=== PATIENT | female | born 1995 | race Caucasian/White ===

== ENCOUNTER 2020-05-10 18:51 | Inpatient (IN) ==
[~2020-05-10 18:51] MED LIST: Penicillin G Potassium 2,500,000 UNIT/105 ML MLS IVPB SCH
[2020-05-10] MEDS ORDERED: Oxytocin 20 units/ LR 1000 mL 20 UNIT/1,000 ML BAG IVC SCH (19:15)
[2020-05-10] MEDS ORDERED: Penicillin G Potassium 5,000,000 UNIT in 0.9 % Sodium Chloride Mini Bag 100 ML IVPB ONE (19:15)
[2020-05-10] MEDS ORDERED: Famotidine 20 MG/2 ML VIAL IVP PRN (19:15)
[2020-05-10] MEDS ORDERED: CeFAZolin 2,000 MG/50 ML BAG IVPB ONE (19:15)
[2020-05-10] MEDS ORDERED: *HR* FentaNYL (PF) 100 MCG/2 ML VIAL IVP PRN (19:15)
[2020-05-10] MEDS ORDERED: Ondansetron 4 MG/2 ML VIAL IVP PRN (19:15)
[2020-05-10] MEDS ORDERED: *HR* Nalbuphine 10 MG/ML AMPUL IV PRN (19:15)
[2020-05-10] MEDS ORDERED: Azithromycin 500 MG in 0.9 % Sodium Chloride 250 ML IVPB ONE (19:15)
[2020-05-10] MEDS ORDERED: Ringers Solution, Lactated 1,000 ML IVC SCH (19:15)
[2020-05-10] MEDS ORDERED: Metoclopramide 10 MG/2 ML VIAL IVP PRN (19:15)
[2020-05-10] MEDS ORDERED: Naloxone 0.4 MG/ML INJ IVP PRN (19:15)
[2020-05-10 19:36] LABS: Basophils % 0.3 %; Eosinophils # 0.1 K/mcL (0.0-0.6); Eosinophils % 0.5 %; Hematocrit 38.3 % (35.3-44.9); Hemoglobin 13.1 g/dL (11.5-15.4); Immature Granulocytes % 0.5 % (0-4); Mean Corpuscular HGB Conc 34.2 g/dL (31.6-35.5); Mean Corpuscular Hemoglobin 29.4 pg (28.0-33.3); Mean Corpuscular Volume 86.1 fL (83.0-100.0); Mean Platelet Volume 10.7 fL (9.4-12.4); Monocytes # 1.1 K/mcL (0.0-1.3); Monocytes % 7.3 %; Neutrophils # 11.9 K/mcL (1.6-8.9); Platelet Count 174 K/mcL (140-400); Red Blood Count 4.45 M/mcL (3.82-4.97); Red Cell Distribution Width 12.9 % (11.5-14.5); Segmented Neutrophils % 78.4 %; White Blood Count 15.1 K/mcL (4.3-11.1)
[2020-05-10] MEDS ORDERED: EPHEDrine 50 MG/ML VIAL IVP PRN (19:51)
[2020-05-10] MEDS ORDERED: Epidural Premix (fent/bupiv) 110 ML EP ONE (19:55)
[2020-05-10] MEDS ORDERED: Epidural Premix (fent/bupiv) 110 ML EP SCH (20:00)
[2020-05-10 20:22] LABS: Rubella IgG Antibody POSITIVE (POSITIVE); Varicella Zoster IgG Antibody Positive
[2020-05-10] MEDS ORDERED: Azithromycin 500 MG VIAL ONE (20:45)
[2020-05-10] MEDS ORDERED: Ropivacaine/PF 0.2% 20 ML VIAL ONE (21:35)
[2020-05-10] MEDS ORDERED: Lidocaine/EPI 1:200k 2% PF 20 ML VIAL ONE (21:35)
[2020-05-10] MEDS ORDERED: *HR* FentaNYL (PF) 100 MCG/2 ML VIAL ONE (21:35)
[2020-05-10 21:44] LABS: Hepatitis B Surface Antigen Nonreactive (Nonreactive)
[2020-05-10 22:09] LABS: Amphetamine Screen,Urine Positive ng/mL (Cutoff=1000); Barbiturate Screen,Urine Negative ng/mL (Cutoff=200); Benzodiazepines Screen,Urine Negative ng/mL (Cutoff=200); Cannabinoid Screen,Urine Negative ng/mL (Cutoff = 50); Cocaine Screen,Urine Negative ng/mL (Cutoff= 300); Opiate Screen,Urine Positive ng/mL (Cutoff=300); Phencyclidine Screen,Urine Negative ng/mL (Cutoff=25)
[2020-05-10 22:13] LABS: HIV-1&2 Antibody & p24 Ag Nonreactive (Nonreactive)
[2020-05-10 23:44] LABS: Adenovirus Not Detected (Not Detect); Bordetella Pertussis Not Detected (Not Detect); Chlamydophila pneumoniae Not Detected (Not Detect); Coronavirus 229E Not Detected (Not Detect); Coronavirus HKU1 Not Detected (Not Detect); Coronavirus NL63 Not Detected (Not Detect); Coronavirus OC43 Not Detected (Not Detect); Human Metapneumovirus Not Detected (Not Detect); Human Rhinovirus/Enterovirus Not Detected (Not Detect); Influenza A Subtype 2009 H1 Not Detected (Not Detect); Influenza B Not Detected (Not Detect); Mycoplasma pneumoniae Not Detected (Not Detect); Parainfluenza Virus 1 Not Detected (Not Detect); Parainfluenza Virus 2 Not Detected (Not Detect); Parainfluenza Virus 3 Not Detected (Not Detect); Parainfluenza Virus 4 Not Detected (Not Detect); Respiratory Syncytial Virus Not Detected (Not Detect); SARS-CoV-2 Not Detected (Not Detect)
[2020-05-11] MEDS ORDERED: Lanolin 7 G OINT...G. TP PRN (02:28)
[2020-05-11] MEDS ORDERED: Oxytocin 20 units/ LR 1000 mL 20 UNIT/1,000 ML BAG IVC SCH (02:28)
[2020-05-11] MEDS ORDERED: Oxytocin 20 units/ LR 1000 mL 20 UNIT/1,000 ML BAG IVC ONE (02:28)
[2020-05-11] MEDS ORDERED: Benzocaine/Menthol 56 GM AEROSOL SPRAY TP PRN (02:28)
[2020-05-11] MEDS: Ibuprofen 600 MG TABLET PO PRN ×3 (04:10→20:55)
[2020-05-11] MEDS: Acetaminophen 325 MG TABLET PO PRN ×2 (06:55→15:42)
[2020-05-11 09:22] LABS: Basophils % 0.2 %; Eosinophils # 0.1 K/mcL (0.0-0.6); Eosinophils % 0.4 %; Hematocrit 35.8 % (35.3-44.9); Hemoglobin 12.3 g/dL (11.5-15.4); Immature Granulocytes % 0.6 % (0-4); Lymphocytes # 1.2 K/mcL (0.6-4.6); Lymphocytes % 9.5 %; Mean Corpuscular HGB Conc 34.4 g/dL (31.6-35.5); Mean Corpuscular Hemoglobin 30.2 pg (28.0-33.3); Mean Platelet Volume 10.5 fL (9.4-12.4); Monocytes # 0.6 K/mcL (0.0-1.3); Monocytes % 4.7 %; Neutrophils # 10.7 K/mcL (1.6-8.9); Platelet Count 159 K/mcL (140-400); Red Blood Count 4.07 M/mcL (3.82-4.97); Segmented Neutrophils % 84.6 %; White Blood Count 12.6 K/mcL (4.3-11.1)
[2020-05-11] MEDS: Prenatal Vit/FA 1 EACH TABLET PO SCH (09:33)
[2020-05-11 11:28] LABS: Alanine Aminotransferase 31 Units/L (7-52); Aspartate Amino Transferase 31 Units/L (13-39); BUN/Creatinine Ratio 9 (6-26); Blood Urea Nitrogen 6 mg/dL (6-20); Lactate Dehydrogenase 172 Units/L (140-271); Uric Acid 5.7 mg/dL (2.3-7.6); eGFR For African Americans > 60 (> 60); eGFR For Non-African Americans > 60 (> 60)
[2020-05-11] MEDS ORDERED: NIFEdipine XL (24 HR) 30 MG TAB.ER.24 PO SCH (15:15)
[2020-05-12] MEDS: cloNIDine HCL 0.1 MG TABLET PO SCH ×3 (10:07→20:08)
[2020-05-12] MEDS: Ibuprofen 600 MG TABLET PO PRN ×2 (10:07→20:08)
[2020-05-12] MEDS: Prenatal Vit/FA 1 EACH TABLET PO SCH (10:07)
[2020-05-13] MEDS: Prenatal Vit/FA 1 EACH TABLET PO SCH (08:09)
[2020-05-13 08:29] VITALS: BP 134/75
[2020-05-13] MEDS: cloNIDine HCL 0.1 MG TABLET PO SCH (08:36)
== END 2020-05-13 10:50 | disposition home or self-care (01) | DRG 807 ==
LOC: 1NENULAB → 1NENUOBS 05-11 02:16
PROVIDERS: ADMIT Advanced Practice Midwife; ATTEND Advanced Practice Midwife